=== PATIENT | female | born 1955 | race Caucasian/White ===

== ENCOUNTER 2017-07-25 09:40 | Day surgery (SDC) | payer BC ==
--- NOTE | 2017-07-25 10:41 | OR ---
Anesthesia Pre Procedure Eval Date of Service: 07/25/17 Pre Procedure Evaluation: Last Vital Signs Temp 36.5 C 07/25/17 09:54 Pulse 83 07/25/17 09:54 Resp 16 07/25/17 09:54 BP 137/68 07/25/17 09:54 Pulse Ox 97 07/25/17 09:54 Anesthesia Pre Procedure Evaluation DATE: 07/25/2017 TIME: 1040 INDICATIONS: Disc bulge L5-S1, left radicular pain. PAST MEDICAL HISTORY: Ms. viri Serrano has had a long history of back issues and has been treated with conservative medical therapy and epidural steroids in the past. She had been doing fairly well recently until the past month or 2 which she had an onset of left radicular pain but it has been tolerable with use of Tylenol. Approximately one week ago during a car ride she had a sudden sneeze which produced an immediate sharp shooting pain in the left leg to the foot. The pain has been relatively persistent sense and it is unrelieved by alternations of Tylenol and ibuprofen. History of GERD: No History of smoking: No History of sleep apnea: No EXAM: Heart S1-S2 regular; lungs clear bilaterally ASSESSMENT OF MEDICAL STATUS: Appropriate candidate for epidural steroid injection PLANNED PROCEDURE: Epidural steroid injection L5-S1 Home Medications: HOME MEDICATIONS Losartan Potassium [Cozaar] 100 mg PO DAILY 06/13/15 [Last Taken 06/13/15] Diltiazem HCl [Tiazac] 240 mg PO BID 07/23/17 [Last Taken Unknown] Flecainide Acetate [Tambocor] 50 mg PO Q12H 07/23/17 [Last Taken Unknown] Furosemide [Lasix] 20 mg PO DAILY 07/23/17 [Last Taken Unknown] Levothyroxine Sodium [Synthroid] 1.5 tab PO VIVAR 07/23/17 [Last Taken Unknown] Levothyroxine Sodium [Synthroid] 88 mcg PO [id number] 07/23/17 [Last Taken Unknown] Metolazone [Zaroxolyn] 5 mg PO MOWEFR 07/23/17 [Last Taken Unknown] Potassium Chloride [Klor-Con] 40 meq PO BID 07/23/17 [Last Taken Unknown]
[2017-07-25] MEDS ORDERED: IOPAMIDOL 20 ML VIAL IJ ONE (11:10)
[2017-07-25] MEDS ORDERED: DEXAMETHASONE SOD PHOSPHATE 10 MG/ML VIAL IJ ONE (11:10)
[2017-07-25] MEDS ORDERED: LIDOCAINE HCL/PF 5 ML VIAL IJ ONE (11:10)
--- NOTE | 2017-07-25 11:20 | OR ---
Anesthesia Procedure Note - Anesthesia Procedure Note Date of Service: 07/25/17 Narrative: Vital Signs - Last Taken Temp 36.5 C 07/25/17 09:54 Pulse 83 07/25/17 09:54 Resp 16 07/25/17 09:54 BP 137/68 07/25/17 09:54 Pulse Ox 97 07/25/17 09:54 07/25/17 11:17 ANESTHESIA PROCEDURE NOTE Date of Procedure: 07/25/2017 Time of procedure: 1105. Performed by: Timoteo Lewis CRNA, REPAIRER [employer] DOOR, MSN Grocery Clerk Marking: Nya Corley RN. Preprocedure diagnosis: Disc bulge L5-S1 with left radicular pain. Post procedure diagnosis: Same. Procedure: Epidural Steroid Injection L5-S1 left. Indications: Left radicular pain. Findings: See below. Details of the procedure: After the MRI report and films were reviewed, the patient was interviewed where risks and the procedure were explained. The patient was then brought to [facility] and was placed in the prone position. The back was prepped with DuraPrep and draped in a sterile fashion. The lumbar area was identified under fluoroscopy and the L5-S1 left space was localized with 1% lidocaine solution. The epidural space was identified using loss of resistance technique using a #20-gauge Touhy needle. 1 mL of Isovue was injected while the C-arm was positioned in the lateral orientation. The C-arm was then readjusted to an AP view and Isovue 200 3 milliliters was injected demonstrating a spread at the affected area. Dexamethasone 10mg and lidocaine 1 % 5 mL was injected, stylette was replaced and the epidural needle removed. A Band-Aid was then applied to the injection site, patient was placed in a supine position for 5 minutes then returned to ASU with good relief of pain, from a 5/ 10 on ambulation to 0/10. EBL: None. Energy: 15.5 Seconds, 7.23 mGy Fluids: N/A. Specimen: N/A. Post procedure condition: The patient tolerated the procedure well. No complications were noted. Thank you for this consultation. Timoteo Lewis CRNA, MSN, REPAIRER [employer] DOOR
[2017-07-25 11:52] VITALS: BP 139/68
== END 2017-07-25 09:41 | disposition home or self-care (01) ==
LOC: AMB 09:40
PROVIDERS: ATTEND Family Medicine
PROC: 3E0S33Z Introduction of Anti-inflammatory into Epidural Space, Percutaneous Approach (ICD-10-PCS; 2017-07-25)
PROC: 3E0S3BZ Introduction of Anesthetic Agent into Epidural Space, Percutaneous Approach (ICD-10-PCS; principal; 2017-07-25 10:30)
DX: M51.27 Other intervertebral disc displacement, lumbosacral region (principal); Z68.41 Body mass index [BMI] 40.0-44.9, adult